=== PATIENT | female | born 1970 | race Hispanic/Latino ===

== ENCOUNTER 2017-05-15 11:19 | Inpatient (IN) | payer BC ==
[2017-05-15 11:19] VITALS: BMI 37.5
[2017-05-15] MEDS ORDERED: Nitroglycerin 2% Ointment Foilpak UD TOP STA (12:23)
--- NOTE | 2017-05-15 12:26 | ED PDOC ---
Arrival/HPI - General Chief Complaint: Dizziness/Lightheaded Time Seen by Provider: 05/15/17 12:19 - History of Present Illness Narrative History of Present Illness (Text): 05/15/17 13:41 47yo female with 1 month duration on/off retrosternal chest discomfort. Pt states it comes and goes, non-exertional, and she denies sob/redmond. Pt states she became diaphoretic today, which mage her concerned, so she came to the ER. Had a stress test yesterday. Past Medical History - Provider Review Nursing Documentation Reviewed: Yes - Infectious Disease Hx of Infectious Diseases: None - Tetanus Immunization Tetanus Immunization: Unknown - Cardiac Hx Hypertension: Yes - Pulmonary Hx Pneumonia: Yes - Neurological Hx Dizziness: Yes (vertigo) - HEENT Hx HEENT Disorder: Yes (eyeglasses) - Musculoskeletal/Rheumatological Hx Falls: No - Gastrointestinal Hx Gastroesophageal Reflux: Yes - Psychiatric Hx Depression: No Hx Emotional Abuse: No Hx Physical Abuse: No Hx Substance Use: No - Past Surgical History Past Surgical History: No Previous - Surgical History Hx Cardiac Catheterization: Yes (06/23/2012 negative) Hx Hysterectomy: Yes (and fibroid removal 4 or 5 yrs ago) Other/Comment: fibroid removal - Anesthesia Hx Anesthesia: Yes Hx Anesthesia Reactions: No Hx Malignant Hyperthermia: No - Suicidal Assessment Feels Threatened In Home Enviroment: No Family/Social History Family/Social History: Unknown Family HX Smoking Status: Never Smoked Hx Alcohol Use: No Hx Substance Use: No Hx Substance Use Treatment: No Allergies/Home Meds Allergies/Adverse Reactions: Allergies No Known Allergies Allergy (Verified 10/29/16 14:24) Home Medications: Home Meds Medication Instructions Recorded Confirmed Unobtainable 05/15/17 05/15/17 Physical Exam - Physical Exam Narrative Physical Exam (Text): 05/15/17 13:43 - Review of Systems Constitutional: diaphoresis absent: Fatigue, Weight Change, Fevers Eyes: Normal ENT: denies sore throat, denies tristhmus Respiratory: Normal. absent: SOB, Cough, Sputum Cardiovascular: Chest Pain absent: Palpitations, Syncope Gastrointestinal: Normal. absent: Abdominal Pain, Diarrhea, Nausea, Vomiting Genitourinary: Normal. absent: Dysuria, Frequency, Hematuria, vaginal bleeding Musculoskeletal: Normal. absent: Arthralgias, Back Pain, Neck Pain Skin: no rashes, no erythema Neurological: absent: Focal Weakness Endocrine: Normal Hemo/Lymphatic: Normal Psychiatric: No suicidal or homicidal ideations Physical exam Patient appears age appropriate in no distress, speaking full sentences without difficulty - Systems Exam Head: Present: Atraumatic, Normocephalic Pupils: Present: PERRL Extroacular Muscles: Present: EOMI Conjunctiva: Present: Normal Mouth: Present: Moist Mucous Membranes Neck: Present: Normal Range of Motion. No: MIDLINE TENDERNESS, Paraspinal Tenderness Respiratory/Chest: Present: Clear to Auscultation, Good Air Exchange. No: Respiratory Distress, Accessory Muscle Use, Tachypneic Cardiovascular: Present: Regular Rate and Rhythm, Normal S1, S2, Peripheal Pulses Present. No: Murmurs Abdomen: Present: Normal Bowel Sounds. No: Tenderness, Distention, Peritoneal Signs, Rebound, Guarding Back: Present: Normal Inspection. No: Midline Tenderness, Paraspinal Tenderness Upper Extremity: Present: Normal Inspection. No: Cyanosis, Edema Lower Extremity: Present: Normal Inspection. No: Edema Neurological: Present: GCS=15, Speech Normal, cranial nerves II through XII fully intact with no cerebellar abnormality, neurosensory fully intact. No focal neurological deficits. Skin: Present: Warm, Dry, Normal Color. No: Rashes Lymphatic: Present: OX3, NI, NC Psychiatric: Present: Alert, Oriented x 3, Normal Insight, Normal Concentration Vital Signs Reviewed: Yes Vital Signs Temp Pulse Resp BP Pulse Ox 05/15/17 11:24 98.1 F 81 18 140/96 H 96 Temperature: Afebrile Blood Pressure: Hypertensive (reports non-compliance with her anti-hypertensive meds, cannot recall name) Pulse: Regular Respiratory Rate: Normal Appearance: Positive for: Well-Appearing Pain Distress: None Mental Status: Positive for: Alert and Oriented X 3 Medical Decision Making ED Course and Treatment: 05/15/17 12:23 47yo female with chest pain, and diaphoresis EKG with normal sinus, 70bom, no st-segment elevations. t-wave inversions in V5 , V6, III. Previous records reviewed, patient had a stress test on 05/27 which showed left ventricular ejection fraction 53%, normal perfusion, fixed apical defect, Normal gaited wall motion of the left ventricle. 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 Nugent, covering for Dr. Braga, recommends obs in the hospital pt aware of and agrees with plan dw Dr. Samra Andino, accepted pt to his service - Lab Interpretations Lab Results: 05/15/17 12:42 05/15/17 12:42 Lab Results 05/15/17 12:42: Sodium 139, Potassium 4.3, Chloride 104, Carbon Dioxide 27, Anion Gap 12, BUN 11, Creatinine 0.6, Est GFR ( Amer) > 60, Est GFR (Non- Af Amer) > 60, Random Glucose 88, Calcium 9.7, Total Bilirubin 1.0, AST 23, ALT 29, Alkaline Phosphatase 78, Lactate Dehydrogenase 473, Total Creatine Kinase 65 , Troponin I < 0.01, Total Protein 6.9, Albumin 4.0, Globulin 2.9, Albumin/ Globulin Ratio 1.4 05/15/17 12:42: PT 10.3, INR 0.95, APTT 29.9 05/15/17 12:42: WBC 7.7 D, RBC 4.60, Hgb 13.3, Hct 38.7, MCV 84.1, MCH 28.9, MCHC 34.4, RDW 12.1, Plt Count 265, MPV 9.5, Gran % 60.9, Lymph % (Auto) 29.5, [place] % (Auto) 6.4 H, Eos % (Auto) 3.1, Baso % (Auto) 0.1, Gran # 4.67, Lymph # 2.3, [place] # 0.5, Eos # 0.2, Baso # 0.01 - RAD Interpretation Radiology Orders: 05/15/17 12:25 CHEST PORTABLE [RAD] Stat - Medication Orders Current Medication Orders: Discontinued Medications Aspirin (Aspirin Chewable) 324 mg PO STAT STA Stop: 05/15/17 12:24 Last Admin: 05/15/17 12:54 Dose: 324 mg Nitroglycerin (Nitro-Bid 2% Oint) 1 ea TOP STAT STA Stop: 05/15/17 12:24 Last Admin: 05/15/17 12:55 Dose: 1 ea Disposition/Present on Arrival - Present on Arrival Any Indicators Present on Arrival: No History of DVT/PE: No History of Uncontrolled Diabetes: No Urinary Catheter: No History of Decub. Ulcer: No History Surgical Site Infection Following: None - Disposition Have Diagnosis and Disposition been Completed?: Yes Diagnosis: Chest pain Disposition: HOSPITALIZED Disposition Time: 14:37 Patient Plan: Observation Condition: STABLE Discharge Instructions (ExitCare): Chest Pain (ED) Forms: [employer] (Moroccan)
--- NOTE | 2017-05-15 13:01 | RAD ---
HISTORY: cp COMPARISON: 08/29/2016 FINDINGS: LUNGS: No active pulmonary disease. PLEURA: No significant pleural effusion identified, no pneumothorax apparent. CARDIOVASCULAR: Normal. OSSEOUS STRUCTURES: No significant abnormalities. VISUALIZED UPPER ABDOMEN: Normal. OTHER FINDINGS: None. IMPRESSION: No active disease.
[2017-05-15 13:04] LABS: ALB/GLOB RATIO 1.4 (1.1-1.8); ALT/SGPT 29 U/L (7-56); AST/SGOT 23 U/L (15-39); BLOOD UREA NITROGEN 11 mg/dL (7-21); CALCIUM 9.7 mg/dL (8.4-10.5); GFR AFRICAN-AMERICAN > 60; GFR NON-AFRICAN AMERICAN > 60
[2017-05-15 13:14] LABS: BASO # 0.01 K/mm3 (0.0-2.0); BASO % 0.1 % (0.0-3.0); EOS # 0.2 (0.0-0.7); EOS % 3.1 % (1.5-5.0); GRAN # 4.67 (1.4-6.5); GRAN % 60.9 % (50.0-68.0); HEMOGLOBIN 13.3 gm/dL (12.0-16.0); LYMPH # 2.3 (1.2-3.4); LYMPH % 29.5 % (22.0-35.0); MEAN CELL VOLUME 84.1 fL (80.0-105.0); MEAN CORPUSCULAR HEMOGLOBIN 28.9 pg (25.0-35.0); MEAN CORPUSCULAR HGB CONC 34.4 g/dl (31.0-37.0); MEAN PLATELET VOLUME 9.5 fl (7.0-11.0); MONO # 0.5 (0.1-0.6); MONO % 6.4 % (1.0-6.0); PLATELET COUNT 265 10^3/uL (120.0-450.0); RED CELL DISTRIBUTION WIDTH 12.1 % (11.5-14.5); WHITE BLOOD COUNT 7.7 10^3/ul (4.5-11.0)
[2017-05-15 13:17] LABS: TROPONIN I < 0.01 ng/mL
[2017-05-15 13:21] LABS: INR 0.95 (0.93-1.08); PARTIAL THROMBOPLASTIN TIME 29.9 Seconds (23.7-30.8); PROTHROMBIN TIME 10.3 Seconds (9.9-11.8)
[2017-05-15] MEDS ORDERED: Metoprolol Succinate 50 mg XL Tab PO STA (16:02)
[2017-05-15] MEDS ORDERED: Pneumococcal 23-Valent Vaccine IM ONE (17:56)
[2017-05-15] MEDS ORDERED: Sodium Chloride 0.9% 500 ML IV STA (22:41)
--- NOTE | 2017-05-15 22:41 | CP.PCM.PN ---
Subjective - Date & Time of Evaluation Date of Evaluation: 05/15/17 Time of Evaluation: 22:42 - Subjective Subjective: Patient was seen at bedside because as per nurse BP 81/47,HR 63,Temp:98*F. She complained of being hot. No other complaints. Denied chest pain, sob, nausea, sweating , palpitation. Medical record was reviewed. She had received multiple antihypertensive meds. 47 year old woman was admitted with retrosternal chest pain, diaphoresis, Has PMH of HTN,PNA,vertigo, cardiac catheterization(Neg), hystrectomy, fibroid. Objective - Vital Signs/Intake and Output Vital Signs (last 24 hours): Temp Pulse Resp BP Pulse Ox 97.9 F 70 18 86/56 L 97 05/15/17 17:51 05/15/17 22:00 05/15/17 17:51 05/15/17 21:19 05/15/17 15:40 - Medications Medications: Current Medications Acetaminophen (Tylenol 325mg Tab) 650 mg PO Q4H PRN PRN Reason: Headache Last Admin: 05/15/17 18:41 Dose: 650 mg Aspirin (Aspirin Chewable) 81 mg PO DAILY MALIK Metoprolol Succinate (Toprol Xl) 50 mg PO BRK MALIK - Labs Labs: PT 10.3 Seconds (9.9-11.8) 05/15/17 12:42 INR 0.95 (0.93-1.08) 05/15/17 12:42 APTT 29.9 Seconds (23.7-30.8) 05/15/17 12:42 Laboratory Last Values WBC 7.7 10^3/ul (4.5-11.0) D 05/15/17 12:42 RBC 4.60 10^6/uL (3.5-6.1) 05/15/17 12:42 Hgb 13.3 gm/dL (12.0-16.0) 05/15/17 12:42 Hct 38.7 % (36.0-48.0) 05/15/17 12:42 MCV 84.1 fL (80.0-105.0) 05/15/17 12:42 MCH 28.9 pg (25.0-35.0) 05/15/17 12:42 MCHC 34.4 g/dl (31.0-37.0) 05/15/17 12:42 RDW 12.1 % (11.5-14.5) 05/15/17 12:42 Plt Count 265 10^3/uL (120.0-450.0) 05/15/17 12:42 MPV 9.5 fl (7.0-11.0) 05/15/17 12:42 Gran % 60.9 % (50.0-68.0) 05/15/17 12:42 Lymph % (Auto) 29.5 % (22.0-35.0) 05/15/17 12:42 [place] % (Auto) 6.4 % (1.0-6.0) H 05/15/17 12:42 Eos % (Auto) 3.1 % (1.5-5.0) 05/15/17 12:42 Baso % (Auto) 0.1 % (0.0-3.0) 05/15/17 12:42 Gran # 4.67 (1.4-6.5) 05/15/17 12:42 Lymph # 2.3 (1.2-3.4) 05/15/17 12:42 [place] # 0.5 (0.1-0.6) 05/15/17 12:42 Eos # 0.2 (0.0-0.7) 05/15/17 12:42 Baso # 0.01 K/mm3 (0.0-2.0) 05/15/17 12:42 PT 10.3 Seconds (9.9-11.8) 05/15/17 12:42 INR 0.95 (0.93-1.08) 05/15/17 12:42 APTT 29.9 Seconds (23.7-30.8) 05/15/17 12:42 D-Dimer, Quantitative 0.22 mg/L FEU (0-0.50) 05/15/17 12:42 Sodium 139 mmol/L (132-148) 05/15/17 12:42 Potassium 4.3 mmol/L (3.6-5.0) 05/15/17 12:42 Chloride 104 mmol/L (98-107) 05/15/17 12:42 Carbon Dioxide 27 mmol/L (21-33) 05/15/17 12:42 Anion Gap 12 (10-20) 05/15/17 12:42 BUN 11 mg/dL (7-21) 05/15/17 12:42 Creatinine 0.6 mg/dL (0.5-1.4) 05/15/17 12:42 Est GFR ( Amer) > 60 05/15/17 12:42 Est GFR (Non-Af Amer) > 60 05/15/17 12:42 Random Glucose 88 mg/dL (70-110) 05/15/17 12:42 Calcium 9.7 mg/dL (8.4-10.5) 05/15/17 12:42 Total Bilirubin 1.0 mg/dL (0.2-1.3) 05/15/17 12:42 AST 23 U/L (15-39) 05/15/17 12:42 ALT 29 U/L (7-56) 05/15/17 12:42 Alkaline Phosphatase 78 U/L (38-133) 05/15/17 12:42 Lactate Dehydrogenase 473 U/L (333-699) 05/15/17 12:42 Total Creatine Kinase 65 U/L (35-230) 05/15/17 12:42 Troponin I < 0.01 ng/mL 05/15/17 20:00 Total Protein 6.9 g/dL (5.8-8.3) 05/15/17 12:42 Albumin 4.0 g/dL (3.0-4.8) 05/15/17 12:42 Globulin 2.9 gm/dL 05/15/17 12:42 Albumin/Globulin Ratio 1.4 (1.1-1.8) 05/15/17 12:42 - Constitutional Appears: Well, No Acute Distress - Head Exam Head Exam: ATRAUMATIC, NORMAL INSPECTION, NORMOCEPHALIC - Eye Exam Eye Exam: Normal appearance - ENT Exam ENT Exam: Mucous Membranes Dry, Normal External Ear Exam - Neck Exam Neck Exam: Normal Inspection - Respiratory Exam Respiratory Exam: NORMAL BREATHING PATTERN - Cardiovascular Exam Cardiovascular Exam: absent: RRR - GI/Abdominal Exam GI & Abdominal Exam: absent: Distended - Rectal Exam Rectal Exam: Deferred - Exam Additional comments: Deferred. - Extremities Exam Extremities Exam: Normal Inspection - Back Exam Back Exam: NORMAL INSPECTION - Neurological Exam Neurological Exam: Alert, Oriented x3 - Psychiatric Exam Psychiatric exam: Normal Affect, Normal Mood - Skin Skin Exam: Normal Color Assessment and Plan - Assessment and Plan (Free Text) Assessment: Hypotension.-2* to antihypertensive meds. R/O cardiac aetiology. R/O hypovolemia. HTN. Obesity. Hx cardiac cath. Plan: NS 500 CC IV bolus stat.------> After bolus, BP is 100/46 , patient feels better. EKG stat.------------>NSR, inverted T waves V2 through V6, same as in EKG that was done earlier in the day, PRWP. Troponin stat.--------> Continue present management. Will discuss with PMD if BP is persistently low. 01:34 Earlier spoke to because BP had dropped again. It was 86/54 ----> 81/54. Troponin was <0.01. As per discussion with , will order CT angiochest to rule out PE. Blood cultrures. Urine drug screening. Hold antihypertensives. Lovenox 90mg SC Q12H, one dose stat. Normal saline bolus of 500 CC . Normal saline at 75 CC/ hr after that. CRITICAL CARE TIME SPENT:60 minutes.
[2017-05-16] MEDS ORDERED: Sodium Chloride 0.9% 500 ML IV STA (00:57)
[2017-05-16] MEDS ORDERED: Enoxaparin 100 mg Syringe SC SCH (01:00)
[2017-05-16] MEDS ORDERED: Iohexol 300 100 ML IJ ONE (01:13)
[2017-05-16] MEDS: Sodium Chloride 0.9% 1,000 ML IV SCH ×2 (01:52→15:33)
--- NOTE | 2017-05-16 01:58 | CON ---
REASON FOR CONSULTATION: Abnormal EKG. HISTORY OF PRESENT ILLNESS: The patient is a 47-year-old female who has a history of hypertension. 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 The patient underwent a Myoview stress test yesterday as an outpatient, which was concluded to be essentially normal SPECT myocardial perfusion study with fixed apical defects most likely attenuation and normal gated wall motion. At that time, the patient had nonspecific anterior T wave changes. The patient while working at [employer] she did experience dizziness and diaphoresis and was brought to the emergency room. EKG was performed and was consistent with new lateral ischemic T wave changes. The patient underwent cardiac catheterization in 2011, which revealed unremarkable coronary circulation and normal ejection fraction. SOCIAL HISTORY: The patient is nonsmoker. MEDICATIONS: The patient received aspirin 75 mg in the emergency room, clonidine 0.2 mg given as a stat dose, Toprol XL at 50 mg given as stat dose as well as nitroglycerin paste was applied. PHYSICAL EXAMINATION GENERAL: The patient is a middle aged female who does not appear to be in any distress. VITAL SIGNS: Blood pressure 141/93, heart rate 81, temperature 98.1 and respirations 18. HEENT: Normocephalic. NECK: No JVD. CHEST: Clear. HEART: S1, S2 regular. ABDOMEN: Soft. EXTREMITIES: No edema or calf tenderness. LABORATORY DATA: SMA-7: Sodium 139, potassium 4.3, chloride 104, CO2 of 27, glucose 88, BUN 11 and creatinine 0.6. One set of troponin is negative. PT/PTT is within normal limits. CBC; WBC 7.7, hemoglobin 13.3, hematocrit 38.7 and platelet count 265,000. EKG reviewed, sinus rhythm with lateral ischemic T-wave inversion. Chest x-ray was unremarkable. ASSESSMENT: 1. New ischemic lateral T-wave changes. 2. Dizziness and diaphoresis. 3. Uncontrolled hypertension. RECOMMENDATIONS: Continue Toprol XL at 50 mg once a day and start aspirin 81 mg once a day. Obtain serum D-dimer. I will review the echocardiographic study performed yesterday. The preliminary report of which reveals normal ejection fraction and mild pulmonary hypertension. Kwabena Nugent MD
[2017-05-16 02:25] LABS: BARBITURATES, UR NEGATIVE (NEGATIVE); BENZODIAZEPINES, UR NEGATIVE (NEGATIVE); OPIATES, UR NEGATIVE (NEGATIVE); PHENCYCLIDINE, UR NEGATIVE (NEGATIVE)
[2017-05-16] MEDS ORDERED: Metoprolol Succinate 50 mg XL Tab PO SCH (08:00)
--- NOTE | 2017-05-16 09:35 | CARD ---
APPROVED REPORT EKG Measurement Heart [id number] <Conclusion> Normal sinus rhythm PRWP, possibly due to lead positioning Possible anterior AL, age unknown STTW changes c/e ischemia
[2017-05-16] MEDS: Enoxaparin 40 mg Syringe SC SCH (09:36)
--- NOTE | 2017-05-16 09:58 | CT ---
PROCEDURE: CT Chest with contrast (Pulmonary Angiogram) HISTORY: hypotension COMPARISON: None available. TECHNIQUE: Axial computed tomography images were obtained of the chest in the pulmonary arterial phase of enhancement. Coronal and sagittal reformatted images were created and reviewed. Intravenous contrast dose: 100 cc of Omni 300 Radiation dose: Total exam DLP = 535 mGy-cm. This CT exam was performed using one or more of the following dose reduction techniques: Automated exposure control, adjustment of the mA and/or kV according to patient size, and/or use of iterative reconstruction technique. FINDINGS: PULMONARY ARTERIES: Unremarkable. No pulmonary embolism. AORTA: No acute findings. No thoracic aortic aneurysm. LUNGS: Unremarkable. No nodule, mass or pulmonary consolidation. PLEURAL SPACES: Unremarkable. No effusion or pneuomothorax. HEART: Unremarkable. No cardiomegaly. No significant pericardial effusion. LYMPH NODES: No lymphadenopathy. BONES, CHEST WALL: Unremarkable. No fracture or destructive lesion OTHER FINDINGS: The report concurs with the preliminary [facility] report IMPRESSION: Unremarkable CT pulmonary angiogram. No pulmonary embolus.
--- NOTE | 2017-05-16 13:28 | HP ---
HISTORY OF PRESENT ILLNESS: The patient is a 47-year-old female who presented through the emergency room with chest pain. Interestingly, the day prior to the admission, the patient had a nuclear stress test which is interpreted as being negative. She describes the chest pain as being substernal accompanied by diaphoresis. There was no shortness of breath. No radiation of the pain. ALLERGIES: NO KNOWN ALLERGIES. HOME MEDICATIONS: Norvasc 10 mg p.o. daily. SOCIAL HISTORY: The patient never smoked, does not use alcohol or substances. PHYSICAL EXAMINATION VITAL SIGNS: Temperature of 97.6, pulse rate of 64, blood pressure of 96/67, respiratory rate of 18 with an O2 saturation of 99% on room air. HEENT: Unremarkable. NECK: Supple with full range of motion. No bruits are appreciated. There is no jugular venous distention. LUNGS: Clear to auscultation and percussion bilaterally. HEART: Regular rate and rhythm. No murmurs, rubs or gallops. ABDOMEN: Soft. It is nontender. Bowel sounds are normoactive. NEUROLOGIC: The patient is intact. LABORATORY DATA: CBC is within normal limits. Chemistry is also normal. Troponin are negative x3. EKG shows some P wave changes which are consistent with ischemia. IMPRESSION: The impression at this time is: 1. Chest pain. 2. Hypertension. PLAN: Awaiting Dr. Braga's return from medication and possibly cath the patient. ADMITTING DIAGNOSES: 1. Chest pain. 2. Hypertension. Jose Holm MD
--- NOTE | 2017-05-16 21:01 | PN ---
SUBJECTIVE: The patient last night and after midnight experienced dizziness and diaphoresis and was hypotensive, required . CT angio of the chest was negative for pulmonary embolism. EKG revealed worsening of the previously noted anterior T-wave inversion. The patient denies any chest pain. PHYSICAL EXAMINATION: GENERAL: Today, the patient is comfortable. VITAL SIGNS: Blood pressure /100, heart rate is 64, temperature 97, respiration 20. HEENT: Normocephalic. CHEST: Clear. HEART: S1 and S2. Regular. ABDOMEN: Soft. EXTREMITIES: No edema. LABORATORY DATA: Three sets of troponins are negative. Urine drug screen is negative. ASSESSMENT: 1. Hypotension and diaphoresis, myocardial infarction ruled out as well as pulmonary infarction, rule out underlying sepsis. 2. History of systemic hypertension. CONDITIONS: Continue aspirin 81 mg once a day; subcutaneous Lovenox at 40 mg once a day; normal saline at 75 mL per hour; Toprol XL 50 mg once a day. I discussed the case with the hospitalist physician yesterday and I recommended already. I also requested for EKG today. Kwbaena Nugent MD
[2017-05-17] MEDS: Sodium Chloride 0.9% 1,000 ML IV SCH ×2 (03:40→07:16)
[2017-05-17] MEDS: Enoxaparin 40 mg Syringe SC SCH (10:31)
--- NOTE | 2017-05-17 14:29 | PN ---
CARDIOLOGY FOLLOWUP DATE: 05/17/2017 SUBJECTIVE: The patient is in a chair without shortness of breath without chest pain. PHYSICAL EXAMINATION: VITAL SIGNS: Blood pressure is 129/89, heart rate in the 60s. NECK: Negative JVD. LUNGS: Without rales. HEART: Reveal S1 and S2. EXTREMITIES: Without edema. LABORATORY DATA: Hemoglobin is 13. Chemistries; troponin are negative x3. EKG reveals diffuse ST changes from her baseline. IMPRESSION: 1. Status post hypotension associated with angina. 2. Despite negative perfusion stress test, the EKG changes would lead us to catheterization, which is scheduled for the morning. I have discuss risk, and benefits with the patient in detail. She understands, we will load with Plavix and preparation for procedure tomorrow. Mike Braga MD
[2017-05-17] MEDS: Metoprolol Succinate 50 mg XL Tab PO SCH (15:18)
--- NOTE | 2017-05-17 19:43 | CP.PCM.PN ---
Subjective - Date & Time of Evaluation Date of Evaluation: 05/17/17 Time of Evaluation: 19:42 - Subjective Subjective: DRAFT rash at IV infiltrate site. HC was requested. Objective - Vital Signs/Intake and Output Vital Signs (last 24 hours): Temp Pulse Resp BP Pulse Ox 98.2 F 78 20 141/92 H 95 05/17/17 18:00 05/17/17 18:00 05/17/17 18:00 05/17/17 18:00 05/17/17 11:58 - Medications Medications: Current Medications Acetaminophen (Tylenol 325mg Tab) 650 mg PO Q4H PRN PRN Reason: Headache Last Admin: 05/17/17 03:02 Dose: 650 mg Aspirin (Aspirin Chewable) 81 mg PO DAILY [facility] Last Admin: 05/17/17 09:37 Dose: 81 mg Clopidogrel Bisulfate (Plavix) 75 mg PO DAILY [facility] Hydrocortisone (Cortizone 1% Cream) 1 gm TOP BID [facility] Stop: 05/20/17 19:46 Metoprolol Succinate (Toprol Xl) 50 mg PO BRK [facility] Last Admin: 05/17/17 15:18 Dose: 50 mg - Labs Labs: PT 10.3 Seconds (9.9-11.8) 05/15/17 12:42 INR 0.95 (0.93-1.08) 05/15/17 12:42 APTT 29.9 Seconds (23.7-30.8) 05/15/17 12:42
[2017-05-17] MEDS: Hydrocortisone 1% Cream (30 GM) TOP SCH (20:19)
--- NOTE | 2017-05-17 23:35 | PN ---
SUBJECTIVE: The patient is currently in room 275, bed 2. There have been no acute events overnight. No chest pain, no shortness of breath. Later this morning spoke with Dr. Mike Braga about the changes on EKG. She will be cath tomorrow. PHYSICAL EXAMINATION VITAL SIGNS: Afebrile, pulse rate is 69, blood pressure 128/89, respiratory rate of 20, O2 saturation 95% on room air. HEENT: PERRLA, EOMI. NECK: Supple with full range of motion, no bruits are appreciated. LUNGS: Clear bilaterally. HEART: Regular rate and rhythm. No murmur, rubs, or gallops. ABDOMEN: Soft, nontender. Bowel sounds are normoactive. NEUROLOGICAL: The patient is completely intact. LABORATORY DATA: All unremarkable. Troponins are negative x3. Blood cultures that were done were negative, and she has been scheduled by Dr. Braga for catheterization this coming morning. CURRENT DIAGNOSES: 1. Chest pain, rule out coronary artery disease. 2. Angina pectoris. Jose Holm MD
[2017-05-18 05:59] VITALS: O2SAT 96
[2017-05-18] MEDS: Metoprolol Succinate 50 mg XL Tab PO SCH ×2 (06:37→09:05)
[2017-05-18] MEDS ORDERED: Lidocaine 2% Inj (20ml) ONE (07:26)
[2017-05-18] MEDS ORDERED: Midazolam 2 MG/2 ML VIAL ONE ×3 (07:52→08:10)
[2017-05-18] MEDS ORDERED: Iohexol 350 MG/100 ML VIAL ONE (08:16)
[2017-05-18] MEDS: Sodium Chloride 0.9% 1,000 ML IV SCH ×2 (09:05→09:47)
[2017-05-18] MEDS: Hydrocortisone 1% Cream (30 GM) TOP SCH (09:48)
--- NOTE | 2017-05-18 11:52 | CARDCATH ---
PROCEDURE DATE: 05/18/2017 HISTORY: The patient is a 47-year-old woman who presents with marked ST-T changes associated with dizziness. Because of high probability for CAD, cardiac catheterization was recommended. PROCEDURE: Left heart catheterization with coronary angiography and left ventriculogram. The right femoral artery was cannulated with 6-[place] sheath. There were no complications. The findings on catheterization revealed a right dominant circulation. The RCA was unremarkable. The left main artery was selectively cannulized and found to be unremarkable. The LAD and diagonal vessels revealed mild intimal irregularities without significant stenoses. The circumflex artery was unremarkable. The LV function was visualized in the [place] projection. The LV contracted normally with an EF of 60%. Angio-Seal was used to close the femoral artery site. The patient tolerated the procedure well. In summary, the procedure revealed unremarkable coronary arteries with mild intimal irregularities. LV function is normal. Given these findings, the patient's EKG is likely due to her hypertensive changes on the myocardium. I have discussed this with the patient in detail. We will monitor her blood pressure carefully. An exercise program and weight loss program have been discussed. Mike Braga MD
--- NOTE | 2017-05-18 14:36 | DS ---
SUBJECTIVE: The patient is in room 275, bed 2. There have been no acute events overnight. She had a catheterization performed this morning. The catheterization was entirely within normal limits. PHYSICAL EXAMINATION VITAL SIGNS: Afebrile, pulse rate of 75, blood pressure 112/74, respiratory rate of 18. HEENT: PERRLA, EOMI. NECK: Supple with full range of motion and no bruits. LUNGS: Clear bilaterally. HEART: Regular rate and rhythm. No murmur, rubs, or gallops. ABDOMEN: Soft, nontender. Bowel sounds are normoactive. NEUROLOGICAL: There are no focal or motor deficits. CURRENT DIAGNOSES: 1. Chest pain. 2. Hypertension. PLAN: The patient will be discharge and follow on an outpatient basis in the office. Jose Holm MD
[2017-05-18 15:01] VITALS: RESP 18
[2017-05-18 15:40] VITALS: TEMP 97
[2017-05-18 16:26] VITALS: BP 123/91; PULSE 70
--- NOTE | 2017-05-19 09:38 | CARD ---
APPROVED REPORT EKG Measurement Heart [id number] <Conclusion> Normal sinus rhythm Possible anterior infarct, age undetermined ST & T wave abnormality, consider inferolateral ischemia Abnormal ECG
== END 2017-05-18 16:23 | disposition home or self-care (01) | DRG 287 ==
LOC: ED 11:19 → ERH 14:49 → 2RSO 15:48 → OBSVTOIN 05-16 10:30
PROVIDERS: ADMIT Internal Medicine; ATTEND Internal Medicine
PROC: 4A023N7 Measurement of Cardiac Sampling and Pressure, Left Heart, Percutaneous Approach (ICD-10-PCS; principal; 2017-05-18)
PROC: B2151ZZ Fluoroscopy of Left Heart using Low Osmolar Contrast (ICD-10-PCS; 2017-05-18)
PROC: B2111ZZ Fluoroscopy of Multiple Coronary Arteries using Low Osmolar Contrast (ICD-10-PCS; 2017-05-18)
DX: I20.9 Angina pectoris, unspecified (principal); I27.2 Other secondary pulmonary hypertension; I95.2 Hypotension due to drugs; I10 Essential (primary) hypertension; T46.5X5A Adverse effect of other antihypertensive drugs, initial encounter; R42 Dizziness and giddiness; R61 Generalized hyperhidrosis; E66.9 Obesity, unspecified; Z68.37 Body mass index [BMI] 37.0-37.9, adult